=== PATIENT | female | born 1980 | race Caucasian/White ===

== ENCOUNTER → 2020-05-04 10:27 | Outpatient (CLI) | payer BC, SELFPAY ==
--- NOTE | ~2020-05-04 | MM_ITS ---
EXAMINATION: MM screening leydi BI w luis angel HISTORY: Screening mammogram TECHNIQUE: Craniocaudal and mediolateral oblique 3-D tomosynthesis images were obtained and synthetic 2-D images were generated. CAD analysis was submitted and interpreted. COMPARISON: No prior mammogram is available for comparison at this institution. BREAST PARENCHYMAL COMPOSITION: There are scattered areas of fibroglandular density. FINDINGS: There is no evidence of suspicious mass, calcification, or architectural distortion to sugg est malignancy in either breast. There has been no suspicious interval change. IMPRESSION: 1. No mammographic evidence of malignancy. 2. Recommend routine screening mammography in one year. BI-RADS Category 1: Negative Reviewed, dictated and finalized at location A.
== END ==
PROVIDERS: PCP Family Medicine; Visit Provider Obstetrics & Gynecology
DX: Z12.31 Encounter for screening mammogram for malignant neoplasm of breast (principal)
CPT/HCPCS: 77063; 77067

== ENCOUNTER → 2021-05-17 17:38 | Outpatient (CLI) | payer BC, SELFPAY ==
--- NOTE | ~2021-05-17 | MM_ITS ---
EXAMINATION: MM screening leydi BI w luis angel HISTORY: Screening TECHNIQUE: Craniocaudal and mediolateral oblique 3-D tomosynthesis images were obtained and synthetic 2-D images were generated. CAD analysis was submitted and interpreted. COMPARISON: 05/04/2020 BREAST PARENCHYMAL COMPOSITION: There are scattered areas of fibroglandular density. FINDINGS: There is no evidence of suspicious mass, calcification, or architectural distortion to sugg est malignancy in either breast. There has been no suspicious interval change. IMPRESSION: 1. No mammographic evidence of malignancy. 2. Recommend routine screening mammography in one year. BI-RADS Category 1: Negative Reviewed, dictated and finalized at location A.
== END ==
PROVIDERS: PCP Family Medicine; Visit Provider Obstetrics & Gynecology
DX: Z12.31 Encounter for screening mammogram for malignant neoplasm of breast (principal)
CPT/HCPCS: 77063; 77067

== ENCOUNTER → 2022-02-07 14:38 | Outpatient (CLI) | payer BC, SELFPAY ==
--- NOTE | ~2022-02-07 | XR_ITS ---
EXAMINATION: XR chest 2V 02/07/2022 15:18 INDICATION: Bronchitis PROCEDURE: 2 view chest COMPARISON: No prior studies for comparison. FINDINGS: The lungs are clear. The cardiomediastinal silhouette is within normal limits. There are no pleural effusions. There is no pneumothorax suspected. IMPRESSION: 1: NO ACUTE CARDIOPULMONARY DISEASE. Reviewed, dictated and finalized at location A.
== END ==
PROVIDERS: PCP Family Medicine; Visit Provider Nurse Practitioner Family
DX: J40 Bronchitis, not specified as acute or chronic (principal)
CPT/HCPCS: 71046

== ENCOUNTER → 2022-08-14 16:50 | Outpatient (CLI) | payer BC, SELFPAY ==
--- NOTE | ~2022-08-14 | MM_ITS ---
EXAMINATION: MM screening leydi BI w luis angel HISTORY: Screening TECHNIQUE: Craniocaudal and mediolateral oblique 3-D tomosynthesis images were obtained and synthetic 2-D images were generated. CAD analysis was submitted and interpreted. COMPARISON: Comparison to multiple prior studies sequentially, with oldest reviewed study dated 04/14. BREAST PARENCHYMAL COMPOSITION: There are scattered areas of fibroglandular density. FINDINGS: There is no evidence of suspicious mass, calcification, or architectural distortion to sugg est malignancy in either breast. There has been no suspicious interval change. IMPRESSION: 1. No mammographic evidence of malignancy. 2. Recommend routine screening mammography in one year. BI-RADS Category 1: Negative Reviewed, dictated and finalized at location A. 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
== END ==
PROVIDERS: PCP Family Medicine; Visit Provider Obstetrics & Gynecology
DX: Z12.31 Encounter for screening mammogram for malignant neoplasm of breast (principal)
CPT/HCPCS: 77063; 77067

== ENCOUNTER 2023-07-21 10:58 | Inpatient (IN) | payer OTHER, SELFPAY ==
[2023-05-20 16:38] VITALS: BMI 33.8
--- NOTE | 2023-05-20 16:56 | PC.NURSE ---
Report to the Outpatient Waiting Room, entrance under the green pavilion located off [facility], at time 6:00AM on date 05-26-23. Planned Procedure Time: 7:30AM. Time changes happen often and if your time is changed the preop area will call you the afternoon before. - You and your visitor will be asked to self-screen and do not enter if you have any COVID symptoms. - A mask is optional within the hospital at this time. Patients may have clear liquids (water, carbonated beverages, clear teas, apple juice) until 3 hours prior to surgery (4:30AM) with a maximum of 20 ounces. - No food from midnight until time of surgery Take the following medications with a SIP of water the morning of surgery: N/A DO NOT STOP ANY OF YOUR OTHER PRESCRIPTION MEDICATIONS PRIOR TO SURGERY ?EXCEPT THE FOLLOWING Medications to discontinue per physician N/A Please no make-up, nail spanish, hairspray, perfume, deodorant, or body powder the day of surgery. No jewelry (including any body piercings) or valuables the day of surgery, leave them at home. Please take a shower or bath the night before, or the morning of, surgery with an antibacterial soap. Wear comfortable, loose fitting clothing. - Jewelry must be removed prior to entering the operating room. Rings and piercings that are not removed may be cut off. - The hospital will not accept responsibility for valuables. - Please leave all valuables, including medications, at home the day of surgery.T If you are going home after surgery, a licensed dairy truck driver must drive you home. - NO public transportation without another adult if you receive anesthesia. - We recommend that an adult stay with you for 24 hours following discharge. - We also recommend that you do not drive, make important decision, drink alcoholic beverages, or take any drugs that were not prescribed by your health care provider for at least 24 hours after your discharge time. Follow any additional instructions given to you from your surgeon. If you or anyone in your household have experienced Covid symptoms in the past week, please notify your surgeon or the nurse liaison at the phone number below for possible testing. Telephone instructions given to PATIENT and asked if any additional questions and then verbalized understanding. Patient advised to call surgeon office or pre surgery nurse liaison [phone] if any additional questions.
--- NOTE | 2023-05-25 08:59 | PM.IMHP ---
H&P: HPI History of Present Illness Date/Time: 05/25/23 08:59 Chief Complaint: fibroid uterus Narrative: Juanita is a 43yo P1011, LMP 03/25/23 who presents for scheduled surgery. She has a normal pap 02/2021. She has a Mirena IUD in place since 01/2019, strings were not visualized in 2020 but US confirmed correct placement (but she does have an enlarged fibroid uterus (12cm). She reports her heavy cycles have been treated with the Mirena; occasionally has 10 days of light bleeding but not too frequent (cycles were much heavier w/o Mirena though). She now reports her pelvic pain has significantly worsened over the last year; sex is now very painful. She is having OAB symptoms and feeling like her bladder isn't emptied and can't fully fill. She saw urology who said things were normal and likely her fibroids causing issues. 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 She would like to proceed with hysterectomy. Review of Systems Constitutional: Constitutional: Denies chills, Denies fever(s) and Denies headache(s) Eyes: Eyes: Denies change in vision ENT: Denies dizziness and Denies headache(s) Cardiovascular: Cardiovascular: Denies chest pain and Denies dyspnea Respiratory: Respiratory: Denies cough and Denies dyspnea Gastrointestinal: Gastrointestinal: Denies abdominal pain and Denies change in stool character Genitourinary: Genitourinary: Denies abnormal menses, Reports dyspareunia, Reports dysmenorrhea, Reports pelvic pain, Denies vaginal discharge, Denies vaginal odor and Denies vaginal pruritus Neurologic: Denies dizziness and Denies headache(s) Psychiatric: Psychiatric: Denies anxiety and Denies depression [facility] Past Medical History Medical History Encounter for insertion of mirena IUD 01/29/2019 Surgical History Surgical History H/O excision of dermoid cyst History of colposcopy 2002 History of tubal ligation Social History Social History Smoking status: Never smoker Second hand tobacco smoke exposure: Yes Alcohol intake: never Substance use: never Substance use type: does not use Lack of Transportation: No Lack of Food: Never True Current Housing: I Have Housing Concerned About Future Housing: No Difficulty Paying Gas/Electric Bills: No Difficulty Paying for Meds: No Currently Unemployed: No Education: Associate Degree Difficulty w/ Childcare or Family Care: No Living arrangements: with roommate(s) Additional living arrangements comments: BOYFRIEND Occupation/Education: occupation Gender identity (if verbalized by the patient): Female Sexual Orientation (if Verbalized by the Patient): Straight or Heterosexual Spiritual care concerns: No Meds Home Medications and Allergies Home Medications Medication Instructions Recorded Confirmed Type levonorgestrel 21 mcg/24 hours (8 1 device intrauterine ONCE 03/06/22 05/20/23 History yrs) 52 mg intrauterine device (Mirena) diphenhydramine HCl 25 mg tablet 25 mg PO DAILY 05/20/23 05/20/23 History (Benadryl Allergy) Allergies Allergy/AdvReac Type Severity Reaction Status Date / Time No Known Allergies Allergy Verified 05/20/23 16:40 Exam Const: General: cooperative, healthy appearing, comfortable and no acute distress Orientation/consciousness: patient oriented x3 Resp: Effort & Inspection: normal respiratory effort Cardio: Rate: regular rate GI: Inspection: normal to inspection GI Palp: No abdominal tenderness and Yes Soft to palpation : Other: deferred to OR Skin: General skin exam: normal color Neuro: General: patient oriented x3 Extrem: General: normal to inspection Psych: Appearance: grossly normal Affect: normal affect Attitude: coop
[2023-07-08 11:23] VITALS: BMI 33.8
--- NOTE | 2023-07-08 11:27 | PC.NURSE ---
Report to the Outpatient Waiting Room, entrance under the green pavilion located off [facility], at time 0600 on date 07/21/23. Planned Procedure Time: 0730. Time changes happen often and if your time is changed the preop area will call you the afternoon before. - You and your visitor will be asked to self-screen and do not enter if you have any COVID symptoms. - A mask is optional within the hospital at this time. Patients may have clear liquids (water, carbonated beverages, clear teas, apple juice) until 3 hours prior to surgery with a maximum of 20 ounces. - No food from midnight until time of surgery Take the following medications with a SIP of water the morning of surgery: NONE DO NOT STOP ANY OF YOUR OTHER PRESCRIPTION MEDICATIONS PRIOR TO SURGERY ?EXCEPT THE FOLLOWING Medications to discontinue per physician: N/A Date to take last dose: N/A Please no make-up, nail setswana, hairspray, perfume, deodorant, or body powder the day of surgery. No jewelry (including any body piercings) or valuables the day of surgery, leave them at home. Please take a shower or bath the night before, or the morning of, surgery with an antibacterial soap. Wear comfortable, loose fitting clothing. - Jewelry must be removed prior to entering the operating room. Rings and piercings that are not removed may be cut off. - The hospital will not accept responsibility for valuables. - Please leave all valuables, including medications, at home the day of surgery. If you are going home after surgery, a licensed armored car guard and driver must drive you home. - NO public transportation without another adult if you receive anesthesia. - We recommend that an adult stay with you for 24 hours following discharge. - We also recommend that you do not drive, make important decision, drink alcoholic beverages, or take any drugs that were not prescribed by your health care provider for at least 24 hours after your discharge time. Follow any additional instructions given to you from your surgeon. If you or anyone in your household have experienced Covid symptoms in the past week, please notify your surgeon or the nurse liaison at the phone number below for possible testing. Telephone instructions given to PT - DENNY SHELTON and asked if any additional questions and then verbalized understanding. Patient advised to call surgeon office or pre surgery nurse liaison [phone] if any additional questions.
--- NOTE | 2023-07-20 19:38 | PM.IMHP ---
H&P: HPI History of Present Illness Date/Time: 07/20/23 19:38 Chief Complaint: fibroid uterus Narrative: Juanita is a 43yo P1011, who presents for scheduled surgery. She has a normal pap 02/2021. She has a Mirena IUD in place since 01/2019, strings were not visualized in 2020 but US confirmed correct placement (but she does have an enlarged fibroid uterus (12cm). She reports her heavy cycles have been treated with the Mirena; occasionally has 10 days of light bleeding but not too frequent (cycles were much heavier w/o Mirena though). She now reports her pelvic pain has significantly worsened over the last year; sex is now very painful. She is having OAB symptoms and feeling like her bladder isn't emptied and can't fully fill. She saw urology who said things were normal and likely her fibroids causing issues. 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 She would like to proceed with hysterectomy. Review of Systems Constitutional: Constitutional: Denies chills, Denies fever(s) and Denies headache(s) Eyes: Eyes: Denies change in vision ENT: Denies dizziness and Denies headache(s) Cardiovascular: Cardiovascular: Denies chest pain and Denies dyspnea Respiratory: Respiratory: Denies cough and Denies dyspnea Gastrointestinal: Gastrointestinal: Denies abdominal pain and Denies change in stool character Genitourinary: Genitourinary: Denies abnormal menses, Reports pelvic pain, Denies vaginal discharge, Denies vaginal odor and Denies vaginal pruritus Neurologic: Denies dizziness and Denies headache(s) Psychiatric: Psychiatric: Denies anxiety and Denies depression [facility] Past Medical History Medical History Encounter for insertion of mirena IUD 01/29/2019 Surgical History Surgical History H/O excision of dermoid cyst History of colposcopy 2002 History of tubal ligation Social History Social History Smoking status: Never smoker Second hand tobacco smoke exposure: Yes Alcohol intake: never Substance use: never Substance use type: does not use Lack of Transportation: No Lack of Food: Never True Current Housing: I Have Housing Concerned About Future Housing: No Difficulty Paying Gas/Electric Bills: No Difficulty Paying for Meds: No Currently Unemployed: No Education: Associate Degree Difficulty w/ Childcare or Family Care: No Living arrangements: with friend(s) Additional living arrangements comments: BOYFRIEND Occupation/Education: occupation Gender identity (if verbalized by the patient): Female Sexual Orientation (if Verbalized by the Patient): Straight or Heterosexual Spiritual care concerns: No Meds Home Medications and Allergies Home Medications Medication Instructions Recorded Confirmed Type levonorgestrel 21 mcg/24 hours (8 1 device intrauterine ONCE 03/06/22 07/08/23 History yrs) 52 mg intrauterine device (Mirena) diphenhydramine HCl 25 mg tablet 25 mg PO DAILY 05/20/23 07/08/23 History (Benadryl Allergy) Allergies Allergy/AdvReac Type Severity Reaction Status Date / Time No Known Allergies Allergy Verified 07/08/23 11:25 Exam Const: General: cooperative, comfortable, no acute distress and obese Orientation/consciousness: patient oriented x3 Resp: Effort & Inspection: normal respiratory effort Cardio: Rate: regular rate GI: Inspection: normal to inspection GI Palp: No abdominal tenderness and Yes Soft to palpation : Other: deferred to OR Skin: General skin exam: normal color Neuro: General: patient oriented x3 Extrem: General: normal to inspection Psych: Appearance: grossly normal Affect: normal affect Attitude: cooperative Assessment and Plan Assessment and plan (1) Fibroid uterus
[2023-07-21] VITALS (17 sets, daily range): BP systolic 105–143; BP diastolic 62–84; PULSE 77–95; RESP 12–18; TEMP 36.2–37.1; O2SAT 94–100
--- NOTE | 2023-07-21 06:37 | WPDHPUPDATE1 ---
History and Physical Update Update Date/Time: 07/21/23 06:37 History and Physical has been reviewed, including an updated exam of the patient. There are NO changes in the patient's condition. Risks, benefits, and alternatives have been discussed and questions answered. Patient agrees to proceed with [facility].
[2023-07-21] MEDS: ACETAMINOPHEN 500 MG TABLET 1000 MG PO ×3 (06:50→17:54)
[2023-07-21] MEDS: KETOROLAC 15 MG/ML VIAL (*BKC) IV PUSH (06:50)
--- NOTE | 2023-07-21 07:12 | WPDANESEPPF ---
Anes - Initial Pre Proc Eval Procedure: Operation Date: 07/21/23 07:30 Proposed Procedures p Total Abdominal Hysterectomy with Bilateral Salpingectomy - Denice Adan MD Date/Time: 07/21/23 07:12 Surgeon: Denice Adan MD Pre Op Diagnosis: uterine fibroid Patient Data Age: 43 Gender: F Height: 1.75 m Weight: 101 kg Allergies Allergy/AdvReac Type Severity Reaction Status Date / Time Penicillins AdvReac Nausea and Verified 07/21/23 07:06 Vomiting Home Medications Medication Instructions Recorded Confirmed Type levonorgestrel 21 mcg/24 hours (8 1 device intrauterine ONCE 03/06/22 07/08/23 History yrs) 52 mg intrauterine device (Mirena) diphenhydramine HCl 25 mg tablet 25 mg PO DAILY 05/20/23 07/08/23 History (Benadryl Allergy) Patient hx anesthesia problems: none Family hx anesthesia problems: none Results Review: All pre-operative results and documents have been reviewed as part of the pre-operative evaluation. [facility] Past Medical History Medical History Encounter for insertion of mirena IUD 01/29/2019 Surgical History Surgical History H/O excision of dermoid cyst History of colposcopy 2002 History of tubal ligation Social History Social History Smoking status: Never smoker Second hand tobacco smoke exposure: Yes Alcohol intake: never Substance use: never Substance use type: does not use Lack of Transportation: No Lack of Food: Never True Current Housing: I Have Housing Concerned About Future Housing: No Difficulty Paying Gas/Electric Bills: No Difficulty Paying for Meds: No Currently Unemployed: No Education: Associate Degree Difficulty w/ Childcare or Family Care: No Living arrangements: with friend(s) Additional living arrangements comments: BOYFRIEND Occupation/Education: occupation Gender identity (if verbalized by the patient): Female Sexual Orientation (if Verbalized by the Patient): Straight or Heterosexual Spiritual care concerns: No Anes - Eval Final PreProcedure Day of Procedure 07/21/23 07:12 Patient weight: obese Heart: regular rate and rhythm Lungs: clear to auscultation Airway: Mallampati scale class II Neurological: alert and oriented Last oral intake: >/= 8 hours ASA classification: II Emergent: no Anesthetic plan: proceed Anesthesia type and monitoring: general ETT and standard monitoring Results Review: All pre-operative results and documents have been reviewed as part of the pre-operative evaluation. Informed Consent: The patient's anesthetic plan and its attendant risks and benefits were discussed with the patient/family/POA. Questions were solicited and answers provided to the satisfaction of the patient/family/POA.
[2023-07-21] MEDS: SCOPOLAMINE 1 MG PATCH 1 PATCH TRANSDERM (07:24)
[2023-07-21] MEDS: LACTATED RINGERS 1,000 ML 30 ML IV CONT ×2 (07:24→09:46)
[2023-07-21] MEDS: ceFAZolin 2 GM/D5W 50 ML 2 GM/50 ML BAG IVPB (07:32)
--- NOTE | 2023-07-21 09:43 | W.PM.PROC2 ---
Procedure Note - Detailed Date of Procedure 07/21/23 Pre-op Diagnosis Uterine fibroid, pelvic pain Post-op Diagnosis Same Procedure Performed Total abdominal hysterectomy with bilateral salpingectomy Surgeon Denice Adan MD Loan Officer Heide Anesthesia General Findings Large fibroid uterus; normal ovaries, h/o tubal ligation (stumps removed), normal appearing appendix. Uterus/cervix/tubes total weight: 854g. Good hemostasis at end of case; surgicel powder used. Description of Procedure Juanita was counseled on all risks and benefits in detail. She was taken to the operating room where was placed under general endotracheal anesthesia without issue. She was then prepped and draped in the normal sterile fashion in the dorsal lithotomy position. She received 2g Ancef and a time out was performed. A Pfannenstiel incision was made in the skin and carried down to the underlying fascia. The fascia was nicked on either side of the midline and the fascial incision was extended laterally and superiorly using curved Coker scissors. The fascia was then elevated using Sharan clamps and the underlying rectus muscles were dissected off the fascia, superiorly and inferiorly. The rectus muscles were then in the midline and the peritoneum was entered sharply using Metzenbaum scissors. Once adequate exposure was obtained, a Mobius self retaining retractor was placed within the abdomen and the bowel were packed with moist laps. The uterus was exteriorized and grasped with a tenaculum. My hysterectomy was started on the right side. The tubal stumps were removed and the uterine ovarian artery was then serially clamped, coagulated, and transected using the LigaSure device with good hemostasis. The broad ligament and round ligament was clamped, coagulated, and transected using the LigaSure device. The same procedure was performed on the left side to help release the uterus. The broad ligament was further dissected using a right angle clamp and bovie cautery. The uterine arteries were skeletonized. The bladder flap was started on the left and carried around anteriorly to the right side. The uterine arteries and cardinal ligaments were clamped, coagulated, and transected using the LigaSure device with good hemostasis, bilaterally. The large fibroid uterus was bulky and in the way, therefore, it was amputated from the cervix using a scalpel. The cervical stump was grasped with Sharan clamps. The bladder flap was well out of the surgical field. The cardinal ligaments were taken down until the vagina was met. Sharply curved Z clamps were placed across, and the cervix was cut free from the vagina. The bilateral angles were suture ligated using 0-Vicryl. 3 additional figure of eight 0-Vicryl sutures were placed to approximate the cuff and good hemostasis was noted. The pelvis was irrigated with warm saline and suctioned free. Good hemostasis was noted but Surgicel powder was placed on the cuff raw edges. All instruments, laps and the Mobius were removed from the abdomen. The peritoneum, muscle and fascia were examined and made hemostatic with Bovie cautery. The fascia was then approximated in a running fashion using 0-Vicryl. The subcutaneous tissue was irrigated and made hemostatic with Bovie cautery. The subcutaneous tissue was reapproximated in a running fashion using 0-Vicryl. The skin was reapproximated in a subcuticular fashion using 4-0 Monocryl. Her incision and abdomen were cleaned, and a Mepilex dressing was placed over her incision. Sponge, lap, instrument, and needle counts were correct at the end of the case x2. She was awoken from general anesthesia and taken to recovery in a stable condition. Estimated Blood Loss 100 IV Fluids 1,300 Urine Output 50 Drains No Packing No Pathology Yes (Uterus, cervix, tubal stumps) Complications No immediate complications Condition Stable Disposition Floor [facility] Billing Surgery - Charge Forward: Surgery Billing
[2023-07-21] MEDS: fentaNYL CITRATE INJ (*CRX) 100 MCG/2 ML VIAL 25 MCG IV PUSH ×8 (10:09→10:34)
[2023-07-21] MEDS: diphenhydrAMINE HCl INJ 50 MG/ML VIAL 25 MG IV PUSH (10:46)
--- NOTE | 2023-07-21 11:00 | PC.NURSE ---
Pt up to the floor per bed, call light within reach. Pt moaning and complaining of catheter and perineum pain. recovery stated she had out a little less than 30cc/hr but they did not call Dr. Adan. I tried to adjust the catheter and the patient was moaning and complaining of perineum pain. Ice pack placed on perineum. Catheter in place and draining will continue to monitor output and will give pain medication
[2023-07-21] MEDS: DEXTROSE 5%/0.45% SOD CHL 1,000 ML 125 ML IV CONT ×2 (11:28→18:58)
[2023-07-21] MEDS: KETOROLAC 30 MG/ML VIAL (*BKC) IV PUSH ×3 (11:29→23:02)
--- NOTE | 2023-07-21 12:00 | PC.NURSE ---
patient states that pain is better, she reports pain level at a 4 now
[2023-07-21] MEDS: HYDROmorphon 0.2MG/ML PCA(*CRX 6 MG/30 ML PCA.VIAL 1 MG IV CONT (13:19)
[2023-07-21] MEDS: diphenhydrAMINE HCl CAP 25 MG CAPSULE PO (21:09)
[2023-07-22] MEDS: ACETAMINOPHEN 500 MG TABLET 1000 MG PO ×4 (00:06→21:06)
[2023-07-22 01:25] VITALS: BP 111/69; PULSE 70; RESP 16; TEMP 36.6; O2SAT 100
[2023-07-22] MEDS: DEXTROSE 5%/0.45% SOD CHL 1,000 ML 125 ML IV CONT (02:53)
[2023-07-22] MEDS: SIMETHICONE 80 MG TAB.CHEW PO ×2 (02:53→11:40)
[2023-07-22 03:00] VITALS: BP 111/63; PULSE 74; RESP 16; TEMP 36.6; O2SAT 100
[2023-07-22 05:00] VITALS: BP 114/66; PULSE 74; RESP 16; TEMP 36.8; O2SAT 98
--- NOTE | 2023-07-22 06:49 | PM.GYNPNOP ---
[employer] - A/P Postoperative Procedures: Procedures Operation Date: 07/21/23 07:30 Actual Procedure Side Surgeon p Total Abdominal Hysterectomy with Bilateral Salpingectomy Not Applicable Denice Adan MD Postoperative day: 1 Postoperative status: doing well Postoperative plan: routine post-op care, advance diet, discharge (possibly this afternoon) and other (switch to PO meds) Time Spent With Patient Time: Total time spent is greater than 50% in coordination of care (as documented) at patient's floor/unit and/or counseling patient: Time with patient: less than 15 minutes [employer]- PN:Subj Post-Op Subjective Date/time seen: 07/22/23 06:49 Interval history: POD#1 Juanita reports doing better today. No issues overnight. Her pain is controlled with the [employer] meds. She has tolerated CLD overnight. She denies any vaginal bleeding. Nieves was recently removed, she has not voided yet. She has not passed flatus. She has not ambulated yet, but did sit up in the chair. Review of Systems Review of Systems: All systems reviewed & are unremarkable except as noted in HPI and below (HPI) Constitutional: Constitutional: Denies chills, Denies fever(s) and Denies headache(s) Eyes: Eyes: Denies change in vision ENT: Denies dizziness and Denies headache(s) Cardiovascular: Cardiovascular: Denies chest pain and Denies rapid heart rate Respiratory: Respiratory: Denies cough Genitourinary: Genitourinary: Denies abnormal vaginal bleeding Neurologic: Denies dizziness and Denies headache(s) Exam Const: General: cooperative, healthy appearing, comfortable and no acute distress Orientation/consciousness: patient oriented x3 Resp: Effort & Inspection: normal respiratory effort Auscultation: clear to auscultation bilaterally Cardio: Rate: regular rate GI: Inspection: normal to inspection and incision (pfannenstiel covered with dressing) GI Palp: Yes abdominal tenderness (appropriate) and Yes Soft to palpation Auscultation: normal bowel sounds : Other: no bleeding on pad Skin: General skin exam: normal color Neuro: General: patient oriented x3 Extrem: General: normal to inspection Psych: Appearance: grossly normal Affect: normal affect Attitude: cooperative [employer] - PN: Obj Data Vital Signs Vital Signs: Vital Signs - 24 hr 07/21/23 09:46 07/21/23 10:00 07/21/23 10:15 Temperature 97.2 F L Pulse Rate 88 95 84 Respiratory Rate 14 14 12 Blood Pressure 120/73 131/80 128/80 Pulse Oximetry 99 100 100 Oxygen Delivery Simple Face Mask Simple Face Mask Simple Face Mask Oxygen Flow Rate 8 8 8 07/21/23 10:27 07/21/23 10:30 07/21/23 10:45 Temperature Pulse Rate 89 86 Respiratory Rate 14 14 Blood Pressure 125/83 125/83 Pulse Oximetry 96 97 94 Oxygen Delivery Room Air Room Air Room Air Oxygen Flow Rate 07/21/23 10:56 07/21/23 11:00 07/21/23 11:00 Temperature 98.2 F Pulse Rate 90 84 Respiratory Rate 18 16 Blood Pressure 135/84 143/79 H Pulse Oximetry 99 100 Oxygen Delivery Room Air Room Air Oxygen Flow Rate 07/21/23 13:19 07/21/23 14:45 07/21/23 15:45 Temperature Pulse Rate Respiratory Rate 18 16 16 Blood Pressure Pulse Oximetry 100 100 100 Oxygen Delivery Oxygen Flow Rate 07/21/23 16:57 07/21/23 16:45 07/21/23 16:45 Temperature 98.8 F Pulse Rate 77 Respiratory Rate 16 16 Blood Pressure 119/78 Pulse Oximetry 100 99 Oxygen Delivery Room Air Oxygen Flow Rate 07/21/23 17:59 07/21/23 19:00 07/21/23 19:00 Temperature 98 F Pulse Rate 79 Respiratory Rate 16 16 16 Blood Pressure 115/68 Pulse Oximetry 100 97 98 Oxygen Delivery Oxygen Flow Rate 07/21/23 21:00 07/21/23 23:00 07/21/23 23:00 Temperature 98.7 F Pulse Rate 78 Respiratory Rate 16 16 16 Blood Pressure 105/62 Pulse Oximetry 98 95 95 Oxygen Delivery Oxygen Flow Rate 07/22/23 01:25 07/22/23 01:25 07/22/23 03:00 Temperature 98 F 98 F Puls
[2023-07-22 07:26] LABS: Basophils Percent Auto 0.1 % (0.2-1.2); Eosinophils Percent Auto 0.1 % (0-4.4); Hematocrit 39.7 % (37.0-47.0); Hemoglobin 12.9 g/dL (12.0-15.0); Immature Granulocyte Absolute 0.12 K/mm3 (0.00-0.031); Immature Granulocyte Percent A 1.2 % (0-0.5); Lymphocytes Absolute Auto 1.83 K/mm3 (0.9-3.2); Mean Corpuscular HGB Conc 32.5 g/dl (32-36); Mean Corpuscular Hemoglobin 29.5 pg (26-34); Mean Corpuscular Volume 90.8 fl (80-100); Mean Platelet Volume 10.1 fl (7.4-10.4); Monocytes Absolute Auto 0.5 K/mm3 (0.1-0.6); Monocytes Percent Auto 5.5 % (2.6-8.5); Neutrophils Absolute Auto 7.1 K/mm3 (1.3-6.7); Neutrophils Percent Auto 74.1 % (45.5-73.1); Platelet Count Result 214 k/mm3 (150-375); Red Blood Count 4.37 M/mm3 (4.2-5.4); Red Cell Distribution Width 12.8 % (11.5-14.5); White Blood Count 9.6 K/mm3 (4.5-10.0)
--- NOTE | 2023-07-22 07:29 | WPDANESPN ---
Anes - Prog Note Post-Op Date/Time: 07/22/23 07:29 Cardiovascular status: normal Respiratory status: normal Airway patency: baseline Mental status: baseline Post-Op hydration status: normal Vital Signs: Last Vital Signs Temp 36.8 C 07/22/23 05:00 Pulse 74 07/22/23 05:00 Resp 16 07/22/23 05:00 BP 114/66 07/22/23 05:00 Pulse Ox 98 07/22/23 05:00 O2 Del Method Room Air 07/21/23 16:45 O2 Flow Rate 8 07/21/23 10:15 Pain Score (VAS): 08/23 I/O: Intake & Output 07/21/23 07/21/23 07/22/23 15:59 23:59 07:59 Intake Total 1650 1681.2 1001.4 Output Total 370 1450 1400 Balance 1280 231.2 -398.6 Laboratory Tests 07/22/23 07:20 07/21/23 07/22/23 07/22/23 06:38 07:19 07:20 WBC 9.6 RBC 4.37 Hgb 12.9 Hct 39.7 MCV 90.8 MCH 29.5 MCHC 32.5 RDW 12.8 Plt Count 214 MPV 10.1 Immature Gran % (Auto) 1.2 H Neut % (Auto) 74.1 H Lymph % (Auto) 19.0 [place] % (Auto) 5.5 Eos % (Auto) 0.1 Baso % (Auto) 0.1 L Lymph # (Auto) 1.83 [place] # (Auto) 0.5 Eos # (Auto) 0.0 Baso # (Auto) 0.0 Abs Immat Gran (auto) 0.12 H Absolute Neuts (auto) 7.1 H Absolute Nucleated RBC 0.0 Nucleated RBC % 0.0 Sodium Pending Potassium Pending Chloride Pending Carbon Dioxide Pending Anion Gap Pending BUN Pending Creatinine Pending Estim Creat Clear Calc Pending Estimated GFR Pending Glucose Pending Calcium Pending Blood Type A Positive Antibody Screen Negative Post-procedural complaints: none Patient Feedback: Patient satisfied with anesthetic care.
[2023-07-22 07:36] LABS: Anion Gap 6 mmol/L (8-16); Blood Urea Nitrogen 4 mg/dL (7-17); Calcium 8.3 mg/dL (8.4-10.2); Carbon Dioxide 25 mmol/L (22-30); Chloride 106 mmol/L (98-107); Estimated CRCL calculation 130 ml/min; Estimated Glomerular Filt Rate > 60; Glucose 117 mg/dL (65-110); Potassium 3.4 mmol/L (3.4-5.0); Sodium 137 mmol/L (137-145)
[2023-07-22 08:00] VITALS: BP 129/68; PULSE 83; RESP 16; TEMP 37.3; O2SAT 100
[2023-07-22] MEDS: DOCUSATE SODIUM 100 MG CAPSULE PO ×2 (08:50→18:23)
[2023-07-22] MEDS: IBUPROFEN 600 MG TABLET PO ×3 (08:50→21:06)
[2023-07-22] MEDS: oxyCODONE HCL (*CRX) 5 MG TAB IR PO ×3 (08:51→18:23)
[2023-07-22] MEDS: oxyCODONE HCL (*CRX) 5 MG TAB IR 10 MG PO ×2 (11:39→22:40)
[2023-07-22] MEDS: diphenhydrAMINE HCl CAP 25 MG CAPSULE PO (13:37)
[2023-07-22 15:45] VITALS: BP 112/65; PULSE 88; RESP 16; TEMP 37; O2SAT 100
[2023-07-22 21:11] VITALS: BP 122/71; PULSE 82; RESP 16; TEMP 36.6; O2SAT 100
[2023-07-23] MEDS: IBUPROFEN 600 MG TABLET PO (03:25)
[2023-07-23] MEDS: ACETAMINOPHEN 500 MG TABLET 1000 MG PO ×2 (03:25→08:36)
--- NOTE | 2023-07-23 07:04 | PM.DS ---
DS: Admitting Diagnosis Discharge Date 07/23/22 Admitting Diagnosis Fibroid uterus, pelvic pain DS: Discharge Diagnosis Discharge Diagnosis (1) S/P abdominal hysterectomy: Code(s): Z90.710 - Acquired absence of both cervix and uterus Status: Acute DS: Summary Hospital Course Hospital Course: Juanita was admitted after scheduled total abdominal hysterectomy with bilateral salpingectomy. Her post-op course was uncomplicated. By POD#2, she was ambulating, voiding, tolerating regular diet, her pain was controlled. Her vitals and labs were stable and she desired to go home. Status at Discharge Functional status at discharge: independent ambulation Overall status at discharge: patient is progressing back to baseline Time Spent with Patient Time attestation: Total time spent providing and/or coordinating discharge services: Time spent: Less than 30 minutes Exam Const: General: cooperative, healthy appearing, comfortable, no acute distress and obese Orientation/consciousness: patient oriented x3 Resp: Effort & Inspection: normal respiratory effort Auscultation: clear to auscultation bilaterally Cardio: Rate: regular rate GI: Inspection: normal to inspection and incision (pfannenstiel incision covered w/ dressing) GI Palp: Yes abdominal tenderness (appropriate) and Yes Soft to palpation Auscultation: normal bowel sounds : Other: no bleeding on pad Skin: General skin exam: normal color Neuro: General: patient oriented x3 Extrem: General: normal to inspection Psych: Appearance: grossly normal Affect: normal affect Attitude: cooperative DS: Data Data Completed and Pending Completed studies during hospitalization: Pending at discharge 07/21/23 08:54 Surgical [PTH] Routine Labs on day of discharge: Labs from last 24 hours 07/22/23 07/22/23 07:20 07:19 WBC 9.6 RBC 4.37 Hgb 12.9 Hct 39.7 MCV 90.8 MCH 29.5 MCHC 32.5 RDW 12.8 Plt Count 214 MPV 10.1 Immature Gran % (Auto) 1.2 H Neut % (Auto) 74.1 H Lymph % (Auto) 19.0 [place] % (Auto) 5.5 Eos % (Auto) 0.1 Baso % (Auto) 0.1 L Lymph # (Auto) 1.83 [place] # (Auto) 0.5 Eos # (Auto) 0.0 Baso # (Auto) 0.0 Abs Immat Gran (auto) 0.12 H Absolute Neuts (auto) 7.1 H Absolute Nucleated RBC 0.0 Nucleated RBC % 0.0 Sodium 137 Potassium 3.4 Chloride 106 Carbon Dioxide 25 Anion Gap 6 L BUN 4 L Creatinine 0.60 L Estim Creat Clear Calc 130 Estimated GFR > 60 Glucose 117 H Calcium 8.3 L Discharge Plan Discharge Attending physician on discharge: Denice Adan Discharging Clinician: Denice Adan Anticipated Discharge Date/Time: 07/23/23 10:00 Patient Disposition: Home, Self-Care Activity: may shower, may drive after 2 weeks and pelvic rest Diet: regular Discharge Instructions: Remove dressing if it gets wet or for sure by 07/27/23. Patient Instructions: Hysterectomy (DC) Stand Alone Forms: General Discharge Information Follow-up/Referrals: Denice Adan MD [Physician] - 2 Weeks Discharge Medications: New acetaminophen 500 mg Tablet 1,000 mg PO Q6H Qty: 60 0RF docusate sodium 100 mg Capsule 100 mg PO BID Qty: 120 0RF ibuprofen 600 mg Tablet 600 mg PO Q6H Qty: 40 0RF oxycodone 5 mg Tablet See Rx Instructions .ROUTE .COMPLEX Qty: 24 0RF Rx Instructions: Take 1 tablet q4h PRN pain; can take 2 tablets q6h PRN severe pain-- do not exceed 8 tablets in 24 hours Continued diphenhydramine HCl [Benadryl Allergy] 25 mg Tablet 25 mg PO DAILY Discontinued Mirena 20 mcg/24 hours (7 yrs) 52 mg intrauterine device 1 device intrauterine ONCE Rx Instructions: as a single dose Date of admission: 07/21/23 10:58 Primary Care Provider: Mary,Nuris Donovan Admitting Provider: Denice Adan Attending physician on admission: Denice Adan Condition: Stable Quality
[2023-07-23 08:30] VITALS: BP 111/60; PULSE 78; RESP 18; TEMP 37.2; O2SAT 99
[2023-07-23] MEDS: oxyCODONE HCL (*CRX) 5 MG TAB IR PO (08:36)
[2023-07-23] MEDS: DOCUSATE SODIUM 100 MG CAPSULE PO (08:36)
[2023-07-23] MEDS: SIMETHICONE 80 MG TAB.CHEW PO (08:38)
== END 2023-07-23 09:51 | disposition home or self-care (01) | DRG 743 ==
LOC: ANHOB2 11:04
PROVIDERS: Admitting Provider Obstetrics & Gynecology; PCP Family Medicine; Visit Provider Obstetrics & Gynecology
PROC: 0UT94ZZ Resection of Uterus, Percutaneous Endoscopic Approach (ICD-10-PCS; principal; 2023-07-21 07:30)
DX: D25.9 Leiomyoma of uterus, unspecified (principal); T83.32XA Displacement of intrauterine contraceptive device, initial encounter; N32.81 Overactive bladder
CPT/HCPCS: 36415; 80048; 85025; 86850; 86900; 86901; 88307; A9270; J0690; J1100; J1170; J1200; J1885; J2250; J2405; J2704; J3010; J7120

== ENCOUNTER → 2023-08-15 16:14 | Outpatient (CLI) | payer OTHER, SELFPAY ==
--- NOTE | ~2023-08-15 | MM_ITS ---
EXAMINATION: MM screening [facility] BI w luis angel HISTORY: Screening mammogram TECHNIQUE: Craniocaudal and mediolateral oblique 3-D tomosynthesis images were obtained and synthetic 2-D images were generated. CAD analysis was submitted and interpreted. COMPARISON: 08/14/2022, 05/17/2021, 05/04/2020 BREAST PARENCHYMAL COMPOSITION: There are scattered areas of fibroglandular density. FINDINGS: No suspicious mass, calcification, or architectural distortion are identified in either jaymie ast to suggest malignancy. There has been no suspicious interval change. IMPRESSION: 1. No mammographic evidence of malignancy. 2. Recommend routine screening mammography in one year. BI-RADS Category 1: Negative Reviewed, dictated and finalized at location A. 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
== END ==
PROVIDERS: PCP Obstetrics & Gynecology; Visit Provider Obstetrics & Gynecology
DX: Z12.31 Encounter for screening mammogram for malignant neoplasm of breast (principal)
CPT/HCPCS: 77063; 77067

== ENCOUNTER → 2023-09-01 15:22 | Outpatient (CLI) | payer OTHER, SELFPAY ==
--- NOTE | ~2023-09-01 | XR_ITS ---
Supine and upright views of the abdomen Clinical history: Abdominal pain Findings: Bowel gas pattern is nonspecific. Moderate stool burden. No evidence for obstruction or mack e air. No abnormal mass lesion or calcification is seen. Osseous structures are intact. Impression: Moderate stool burden. Reviewed, dictated and finalized at [facility]. 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
== END ==
PROVIDERS: PCP Nurse Practitioner; Visit Provider Nurse Practitioner
DX: K59.00 Constipation, unspecified (principal); Z90.710 Acquired absence of both cervix and uterus
CPT/HCPCS: 74018

== ENCOUNTER 2024-09-28 08:51 | Outpatient (CLI) | payer OTHER, SELFPAY ==
--- NOTE | ~2024-09-28 | XR_ITS ---
XR chest 2V Ordering provider: Rowena Rene, [employer] History: 44 years Female with . Other forms of dyspnea . Comparison: February 07, 2022 FINDINGS: MEDIASTINUM: The cardiac silhouette is not enlarged. LUNGS: No infiltrates, effusions or pneumothorax. OTHER: No free air under the diaphragm. Degenerative changes of the spine. IMPRESSION: No acute cardiopulmonary pathology. Reviewed, dictated and finalized at location A.
== END 2024-09-28 08:52 | disposition home or self-care (01) ==
LOC: MICIMG 08:53
PROVIDERS: PCP Nurse Practitioner Family; Visit Provider Nurse Practitioner Family
DX: R06.09 Other forms of dyspnea (principal)
CPT/HCPCS: 71046

== ENCOUNTER 2024-12-22 15:52 | Outpatient (CLI) | payer OTHER, SELFPAY ==
--- NOTE | ~2024-12-22 | MM_ITS ---
EXAMINATION: MM screening [facility] BI w luis angel HISTORY: Screening TECHNIQUE: Craniocaudal and mediolateral oblique 3-D tomosynthesis images were obtained and synthetic 2-D images were generated. CAD analysis was submitted and interpreted. COMPARISON: Comparison to multiple prior studies sequentially, with oldest reviewed study dated 05/04 BREAST PARENCHYMAL COMPOSITION: Not dense: There are scattered areas of fibroglandular density. FINDINGS: There are developing asymmetries in the upper outer quadrant of the right breast, posterior third. There is a new mass centrally in the left breast on CC view, posterior third. IMPRESSION: 1. New right breast asymmetry upper outer quadrant. New left breast mass, centrally on CC view. 2. Additional mammographic views and possible breast ultrasound are recommended. BI-RADS Category 0: Incomplete: Needs additional imaging evaluation. Reviewed, dictated and finalized at location B. IMPRESSION: 1. New right breast asymmetry upper outer quadrant. New left breast mass, centr ally on CC view. 2. Additional mammographic views and possible breast ultrasound are recommended . BI-RADS Category 0: Incomplete: Needs additional imaging evaluation.
== END 2024-12-22 15:53 | disposition home or self-care (01) ==
LOC: MICIMG 15:53
PROVIDERS: PCP Obstetrics & Gynecology; Visit Provider Obstetrics & Gynecology
DX: Z12.31 Encounter for screening mammogram for malignant neoplasm of breast (principal); R92.8 Other abnormal and inconclusive findings on diagnostic imaging of breast
CPT/HCPCS: 77063; 77067

== ENCOUNTER 2025-01-17 08:32 | Outpatient (CLI) | payer OTHER, SELFPAY ==
--- NOTE | ~2025-01-17 | MMUS_ITS ---
EXAMINATION: MM diagnostic [facility] BI w luis angel, US breast BI complete HISTORY: Follow-up breast asymmetries TECHNIQUE: Additional 3-D tomosynthesis images of the breasts were performed and synthetic 2-D images were generated. CAD analysis was submitted and interpreted. High resolution bilateral complete breas t ultrasound was performed. COMPARISON: Comparison to multiple prior studies sequentially, with oldest reviewed study dated 04/14. BREAST PARENCHYMAL COMPOSITION: Dense: The breasts are heterogeneously dense, which may obscure small masses FINDINGS: MAMMOGRAPHIC FINDINGS: There are no suspicious masses, calcifications or architectural distortion in either breast to sugges t malignancy. Right breast asymmetry and left breast mass compress with spot views, likely superimpos ed fibroglandular content. ULTRASOUND: Complete US of all 4 quadrants of the breast/s and retroareolar region was reviewed. Right breast: At 10:00, 6 cm from the nipple there is a 8 mm cyst. No suspicious masses in the right breast to suggest malignancy. Left breast: At 12:00, 6 cm from the nipple there is a benign appearing 6 mm intramammary lymph node. IMPRESSION: 1. No evidence for malignancy in either breast. 2. Routine yearly screening mammogram and regular clinical breast examination are recommended. BI-RADS Category 2: Benign finding(s). Reviewed, dictated and finalized at location A. IMPRESSION: 1. No evidence for malignancy in either breast. 2. Routine yearly screening mammogram and regular clinical breast examination a re recommended. BI-RADS Category 2: Benign finding(s).
== END 2025-01-17 08:33 | disposition home or self-care (01) ==
LOC: MICIMG 08:32
PROVIDERS: PCP Obstetrics & Gynecology; Visit Provider Obstetrics & Gynecology
DX: N63.20 Unspecified lump in the left breast, unspecified quadrant (principal); N64.89 Other specified disorders of breast
CPT/HCPCS: 76641; 77062; 77066; G0279

== ENCOUNTER 2025-04-04 09:52 | Day surgery (SDC) | payer OTHER, SELFPAY ==
[2025-03-29 09:02] VITALS: BMI 35.7
[2025-03-29 14:18] VITALS: BMI 35.7
[2025-04-04 10:53] VITALS: BMI 34.7
[2025-04-04 10:54] VITALS: BP 141/83; PULSE 75; RESP 16; TEMP 36.8; O2SAT 100
--- NOTE | 2025-04-04 11:21 | WPDANESEPPF ---
Anes - Initial Pre Proc Eval Procedure: Operation Date: 04/04/25 10:30 Proposed Procedures p Diagnostic Colonoscopy - Austin Mojica MD Date/Time: 04/04/25 11:21 Surgeon: Austin Mojica MD Pre Op Diagnosis: Irritable bowel syndrome with constipation Patient Data Age: 45 Gender: F Height: 1.75 m Weight: 106.8 kg Last Vital Signs Temp 98.2 F 04/04/25 10:54 Pulse 75 04/04/25 10:54 Resp 16 04/04/25 10:54 BP 141/83 H 04/04/25 10:54 Pulse Ox 100 04/04/25 10:54 O2 Del Method Room Air 04/04/25 10:54 Allergies Allergy/AdvReac Type Severity Reaction Status Date / Time Penicillins AdvReac Nausea and Verified 04/04/25 10:42 Vomiting Home Medications ?Medication ?Instructions ?Recorded ?Confirmed ?Type diphenhydramine HCl 25 mg tablet 25 mg PO DAILY 05/20/23 04/04/25 History (Benadryl Allergy) linaclotide 145 mcg capsule 145 mcg PO QAM #90 caps 03/28/25 04/04/25 Rx (Linzess) Patient hx anesthesia problems: none Family hx anesthesia problems: none Results Review: All pre-operative results and documents have been reviewed as part of the pre-operative evaluation. [facility] Past Medical History Medical History Left breast mass Breast asymmetry Abdominal or pelvic swelling, mass, or lump, right lower quadrant Constipation RLQ abdominal pain FH: total abdominal hysterectomy and bilateral salpingo-oophorectomy Encounter for insertion of mirena IUD 01/29/2019 Surgical History Surgical History History of gynecologic surgery 07/21/2023 - Total Abdominal Hysterectomy with Bilateral Salpingectomy H/O excision of dermoid cyst History of tubal ligation History of colposcopy 2002 Social History Social History Smoking status: Never smoker Second hand tobacco smoke exposure: Yes Alcohol intake: never Substance use: never Substance use type: does not use Do You Feel Safe in your Home?: No Lack of Transportation: No Lack of Food: Never True Current Housing: Decline to Answer Concerned About Future Housing: Decline to Answer Difficulty Paying Gas/Electric Bills: Decline to Answer Difficulty Paying for Meds: Decline to Answer Currently Unemployed: Decline to Answer Education: Decline to Answer Difficulty w/ Childcare or Family Care: Decline to Answer Living arrangements: alone Additional living arrangements comments: BOYFRIEND Occupation/Education: occupation Gender identity (if verbalized by the patient): Female Sexual Orientation (if Verbalized by the Patient): Straight or Heterosexual Spiritual care concerns: No Anes - Eval Final PreProcedure Day of Procedure 04/04/25 11:21 Heart: regular rate and rhythm Lungs: clear to auscultation Airway: Mallampati scale class II Neurological: alert and oriented Last oral intake: >/= 8 hours ASA classification: II Anesthetic plan: proceed Anesthesia type and monitoring: monitored anesthesia care Results Review: All pre-operative results and documents have been reviewed as part of the pre-operative evaluation. Informed Consent: The patient's anesthetic plan and its attendant risks and benefits were discussed with the patient/family/POA. Questions were solicited and answers provided to the satisfaction of the patient/family/POA.
[2025-04-04] MEDS: LACTATED RINGERS 1,000 ML 150 ML IV CONT (11:22)
--- NOTE | 2025-04-04 12:02 | PM.IMHP ---
H&P: HPI History of Present Illness Date/Time: 04/04/25 12:02 Chief Complaint: Screening colonoscopy Narrative: This is the patient's first colonoscopy. There are no GI symptoms and there is no family history of colorectal cancer. Review of Systems Review of Systems: All systems reviewed & are unremarkable except as noted in HPI and below PMFSH Past Medical History Medical History Left breast mass Breast asymmetry Abdominal or pelvic swelling, mass, or lump, right lower quadrant Constipation RLQ abdominal pain FH: total abdominal hysterectomy and bilateral salpingo-oophorectomy Encounter for insertion of mirena IUD 01/29/2019 Surgical History Surgical History History of gynecologic surgery 07/21/2023 - Total Abdominal Hysterectomy with Bilateral Salpingectomy H/O excision of dermoid cyst History of tubal ligation History of colposcopy 2002 Social History Social History Smoking status: Never smoker Second hand tobacco smoke exposure: Yes Alcohol intake: never Substance use: never Substance use type: does not use Do You Feel Safe in your Home?: No Lack of Transportation: No Lack of Food: Never True Current Housing: Decline to Answer Concerned About Future Housing: Decline to Answer Difficulty Paying Gas/Electric Bills: Decline to Answer Difficulty Paying for Meds: Decline to Answer Currently Unemployed: Decline to Answer Education: Decline to Answer Difficulty w/ Childcare or Family Care: Decline to Answer Living arrangements: alone Additional living arrangements comments: BOYFRIEND Occupation/Education: occupation Gender identity (if verbalized by the patient): Female Sexual Orientation (if Verbalized by the Patient): Straight or Heterosexual Spiritual care concerns: No Meds Home Medications and Allergies Home Medications ?Medication ?Instructions ?Recorded ?Confirmed ?Type diphenhydramine HCl 25 mg tablet 25 mg PO DAILY 05/20/23 04/04/25 History (Benadryl Allergy) linaclotide 145 mcg capsule 145 mcg PO QAM #90 caps 03/28/25 04/04/25 Rx (Linzess) Allergies Allergy/AdvReac Type Severity Reaction Status Date / Time Penicillins AdvReac Nausea and Verified 04/04/25 10:42 Vomiting Vital Signs Vital Signs - 24 hr 04/04/25 10:54 Temperature 98.2 F Pulse Rate 75 Respiratory Rate 16 Blood Pressure 141/83 H Pulse Oximetry 100 Oxygen Delivery Room Air Exam Const: General: cooperative and healthy appearing Resp: Effort & Inspection: normal respiratory effort and able to speak in complete sentences Auscultation: clear to auscultation bilaterally Cardio: Rate: regular rate Rhythm: regular rhythm GI: Inspection: normal to inspection GI Palp: No No hepatosplenomegaly present Auscultation: normal bowel sounds Rectal Exam: deferred Skin: General skin exam: normal color Psych: Appearance: grossly normal Mental Status: mental status grossly normal Assessment and Plan Assessment and plan (1) Encounter for screening colonoscopy: Code(s): Z12.11 - Encounter for screening for malignant neoplasm of colon Status: Acute Assessment and Plan: The patient is deemed a good candidate for the procedure. Consent signed. Will proceed.
--- NOTE | 2025-04-04 12:14 | WPDANESPN ---
Anes - Prog Note Post-Op Date/Time: 04/04/25 12:14 Vital Signs: Last Vital Signs Temp 98.2 F 04/04/25 10:54 Pulse 75 04/04/25 10:54 Resp 16 04/04/25 10:54 BP 141/83 H 04/04/25 10:54 Pulse Ox 100 04/04/25 10:54 O2 Del Method Room Air 04/04/25 10:54 Pain Score (VAS): no Patient Feedback: Patient satisfied with anesthetic care.
[2025-04-04 12:39] VITALS: BP 121/71; PULSE 77; RESP 18; O2SAT 100
[2025-04-04 12:49] VITALS: BP 113/66; PULSE 68; RESP 16; O2SAT 100
[2025-04-04 12:59] VITALS: BP 114/71; PULSE 62; RESP 16; O2SAT 100
== END 2025-04-04 13:20 | disposition home or self-care (01) ==
PROVIDERS: PCP Nurse Practitioner Family; Visit Provider Internal Medicine Gastroenterology
PROC: 0DJD8ZZ Inspection of Lower Intestinal Tract, Via Natural or Artificial Opening Endoscopic (ICD-10-PCS; CPT 45378; principal; 2025-04-04 10:30)
DX: Z12.11 Encounter for screening for malignant neoplasm of colon (principal)
CPT/HCPCS: 45378